=== PATIENT | female | born 1950 | race Caucasian/White ===

== ENCOUNTER 2020-05-29 09:07 | Outpatient (RCR) | payer MEDICARE, SELFPAY ==
--- NOTE | 2020-06-12 09:28 | MHC.SL.POC ---
[address] [address] Speech & Hearing [phone] Name: Maxine Kim Date of : 1950 Age: 69 Date of Registration: 05/29/20 Referring provider: Michelle Chavez MD Reason for Referral: Slurred Speech Type of Treatment: 69420 Evaluation Speech Sound Production WITH Language Date of Plan of Treatment: 05/29/20 Onset of Symptoms/Illness: 04/27/20 Date Treatment Started: Medical Diagnosis: Pt did not report any other medical diagnoses. Speech & Language Primary Diagnosis:R47.81 Slurred speech Speech & Language Secondary Diagnosis: R41.841 Cognitive communication disorder Comments: Pt is a 69 year old female who was referred to the [facility] by her PCP, Dr. Merrick Chavez for concerns regarding articulation and speech intelligibility. Pt reported that onset of slurred speech was sudden and correlated to the timeline of discontinued use of Benzodiazepines and Seroquel. She discontinued taking benzodiazepines about one month ago and Seroquel 2 days ago. She reports that her speech sounds slurred and garbled. Pt also stated concerns regarding an increase in memory and word finding difficulties. Pt stated she had two MRI's of her head recently with no abnormalities were noted. She has a consultation scheduled with a neurologist on 06/01. Recommendation for Speech Therapy: Text Comment: Due to the results of this evaluation, it is recommended that Maxine participate in skilled 1:1 speech therapy to further assess her cognitive/linguistic functioning and to increase her overall speech clarity. Frequency/Duration: 12 weekly appointments Date Range for Service Requested: Timeline to reassess: 3-6 months Goal #1 : Maxine will participate in additional cognitive/linguistic testing. Status of Goal #1 : New Goal Objectives/Clinical Observations: Maxine will complete the Cognitive Linguistic Quick Test (CLQT) and the [place] Diagnostic Aphasia Evaluation (BDAE) with 100% completion. Goal #2 : Maxine will improve overall speech intelligibility to indicate her wants, needs, and preferences with both familiar and unfamiliar listeners. Status of Goal #2: New Goal Objectives/Clinical Observations : Maxine will use strategies (over articulation/slow rate/writing gregory word/ phrasing) to improve overall speech intelligibility with words/phrases/sentences/in conversation with 85% accuracy and mod cues. Recommended Referrals: Neurology Neuropsychological Eval Rug Touch Up Painter Clinican/Clinical Fellow: Yes: Jud Moyer M.A., CF-[employer]PER[employer] Supervisory Statement: I have reviewed and agree with the documentation written by the student/clinical fellow: Yes Speech Language Pathologist: Sydnee Lazo M.A., CCC-CRIMPING MACHINE OPERATOR
== END 2020-10-06 11:30 | disposition other institution (70) ==
LOC: HO.SH 09:07
PROVIDERS: PCP Family Medicine; Referring Provider Family Medicine; Visit Provider Family Medicine
DX: R47.1 Dysarthria and anarthria (principal)
CPT/HCPCS: 92523

== ENCOUNTER 2020-08-08 10:47 | Outpatient (RCR) | payer MEDICARE, SELFPAY ==
--- NOTE | 2020-08-09 10:58 | MHC.SL.SOA ---
[facility] [phone] SPEECH & HEARING TREATMENT SOAP NOTE Referring Provider: Michelle Chavez MD Reason for Referral: Slurred Speech Date of Plan of Treatment:05/29/20 Onset of Symptoms/Illness:04/27/20 Date Treatment Started:08/08/20 Medical Diagnosis:Pt is a 69 year old female who was referred to the [facility] by her PCP, Dr. Merrick Chavez for concerns regarding articulation and speech intelligibility. Pt reported that onset of slurred speech was sudden and correlated to the timeline of discontinued use of Benzodiazepines and Seroquel. She discontinued taking benzodiazepines about one month ago and Seroquel 2 days ago. She reports that her speech sounds slurred and garbled. Pt also stated concerns regarding an increase in memory and word finding difficulties. Pt stated she had two MRI's of her head recently with no abnormalities were noted. Pt stated no other medical conditions. Primary Speech Language Diagnosis:R41.844 Frontal lobe and executive function deficit Secondary Speech Language Diagnosis:R47.81 Slurred speech Number of Authorized Visits Remaining: Authorization End Date: Reason for Visit:[id number] Individual Treatment Other: Subjective:Maxine was seen this date for her first speech therapy session. She called this morning to confirm her appointment and arrived promptly. Maxine appeared eager to begin treatment, as she reported her symptoms are getting worse. Maxine expressed concerns regarding her ability to swallow. She stated that as of late, she coughs and chokes on liquids. When asked to further elaborate, she was unable to do so. Maxine appeared more confused this date, than when previously seen. Her verbal communication was difficult to follow and she would often speak in sentence fragments. She was observed to have difficulty finding the words she wanted to use. Maxine reported that she had a recent MRI of her brain and stated that ?everything is fine?. When asked if she had recently seen a neurologist, she stated ?he didn?t like me?. It is important to note that Maxine?s initial speech/language evaluation was ordered due to concerns of dysarthria however, during that evaluation there were also concerns regarding her cognitive functioning. Objective: Maxine participated in additional cognitive testing this date, as indicated in her recent speech/language evaluation on 05/29/20. Maxine was previously evaluated using the [place] Cognitive Assessment (MoCA) and achieved a score of 18/30, indicating a moderate to severe cognitive impairment. Additional cognitive testing was recommended to further evaluate Maxine?s strengths and weaknesses and to inform treatment goals. Maxine was evaluated using the Cognitive Linguistic Quick Test (CLQT) to assess five domains of cognition: attention, memory, language, executive functions, and visuospatial skills. The CLQT provides an overall measure of cognitive-linguistic function and may be used to identify an individual?s cognitive strengths and weaknesses. The CLQT consists of 10 tasks: personal facts, symbol cancellation, confrontation naming, clock drawing, story retelling, symbol trails, generative naming, design memory, mazes, and design generation. Maxine achieved the following in each of the five domains. Attention: The attention score consists of the following subtests: symbol cancellation, story retelling, symbol trails, design memory, mazes, and design generation. A Score of 160-215 is considered WNL. Maxine achieved a composite score of 144, indicating mild impairment. Memory: The memory score consists of the following subtests: personal facts, story retelling, generative naming, and design memory. A score of 141-185 is considered WNL. Maxine achieved a score of 129, indicating a moderate impairment. Executive Functions: The executive functions score consists of the following subtests: symbol trails, generative naming, mazes, and design generation. A score of 19-40 is considered WNL. Maxine achieved a score of 9, indicating a severe impairment. Language: The language score consists of the following subtests: personal facts, confrontation naming, story retell, and generative naming. A score of 28-37 is considered WNL. Maxine achieved a score of 21, indicating moderate impairment. Visuospatial Skills: The visuospatial skills score consists of the following subtests: symbol cancellation, symbol trails, design memory, mazes, and design generation. A score of 62-105 is considered WNL. Maxine achieved a score of 67, indicating a mild impairment. Clock Drawing Severity Ratings: A score of 11-13 is considered WNL. Maxine achieved a score of 7, indicating a severe cognitive impairment for this subtest. Composite Severity Rating: The composite severity rating score is an average of the severity ratings from the five cognitive domains: attention, memory, executive functions, language, and visuospatial skills. A score of 3.5-4.0 is considered WFL. Maxine achieved a score of 2.2, indicating a moderate cognitive impairment. Assessment:Based on Maxine?s performance on the CLQT, she presents with a moderate cognitive impairment. Her lowest score was in the area of executive functions. The tasks in this domain include; symbol trails, generative naming, mazes, and design generation. The symbol trails subtest required Maxien to connect items according to specific instructions and time limits. This task demands skills in the following areas; attention, complex visual scanning, motor agility and speed, working memory, planning, mental flexibility, and conceptualization. Maxine was observed to begin at the correct spot however, appeared to forget the directions and connect the items incorrectly. She asked for reassurance throughout the subtest, however this clinician could not help. During the generative naming task, Maxine demonstrated difficulty with flexible thinking. When asked to name as many animals she could think of, she stated ?animals, animals, animals?. Once the directions were repeated again, she was able to name three animals, ?dog, big dog, cow, bear?. When asked to name as many words beginning with the letter ?m? she provided one word at the end of the 60 seconds. She was observed to repeat the words ?mop, mopped, mopping? which were included in the directions, thus could not count towards her score. Maxine performed well on the first maze task, however had difficulty with the more complex one. This subtest requires planning skills, self monitoring, mental flexibility, and foresight. Maxine consistently presents with difficulties in each of these areas. Maxine became most frustrated during the design generation task. This task was particularly difficult for her because of the high cognitive demands. Maxine also demonstrated difficulty with the clock drawing task. She attempted to pull out her phone to copy a clock however, was quickly reminded by this [employer] to try her best without a visual to help. She did not recall where all of the numbers were to be placed however, when told the instructions a second time, she was able to place them correctly. She did not include any clock hands and asked for this [employer]?s help throughout the time allotted. Maxine also exhibits deficits in the area of memory. She was unable to retell a 3 sentence story immediately after it was presented. Her response was as follows: ?She didn?t have a ring. A tissue. And she find the ring?. Maxine?s relative strengths were demonstrated in the following subtests: personal facts, symbol cancellation, and confrontation naming. Based on her performance on those subtests, her episodic memory and orientation appear to be intact. Plan: Goal #1 : Maxine will participate in additional cognitive/linguistic testing. Status of Goal #1 : Objectives/Clinical Observations: Maxine will complete the Cognitive Linguistic Quick Test (CLQT) and the [place] Diagnostic Aphasia Evaluation (BDAE) with 100% completion. Goal #2 : Maxine will improve overall speech intelligibility to indicate her wants, needs, and preferences with both familiar and unfamiliar listeners. Status of Goal #2: Objectives/Clinical Observations : Maxine will use strategies (over articulation/slow rate/writing gregory word/ phrasing) to improve overall speech intelligibility with words/phrases/sentences/in conversation with 85% accuracy and mod cues. Referrals/recommendations: [employer] recommends Maxine be seen by a neurologist to rule in/out neurological diagnoses, as there are changes in her swallowing function and cognitive status. [employer] also recommends a neuropsychological evaluation due to concerns regarding Maxine?s cognitive changes. [employer] also recommends an MBSS to further assess Maxine?s sudden onset of swallowing difficulties. Maxine will continue to be seen on a weekly basis. Her next appointment is scheduled for 08/15/20 at 11am. Seen by: Graduate/Clinical Fellow: Yes: Jud Moyer M.A., CF-[employer] Supervisory Statement: f_Reg Query Last Value , MHC.AU.SIGNATUR Speech Language Pathologist: Sydnee Lazo M.A., [facility]-[employer]
== END 2020-10-06 11:29 | disposition other institution (70) ==
LOC: HO.SH 10:47
PROVIDERS: Visit Provider Family Medicine
DX: R41.844 Frontal lobe and executive function deficit (principal); R47.81 Slurred speech
CPT/HCPCS: 92507